=== PATIENT | male | born 1935 | race Caucasian/White ===

== ENCOUNTER 2020-11-23 06:07 | Day surgery (SDC) | payer MEDICARE, BC ==
[2020-11-19 11:05] VITALS: BMI 30.8
[~2020-11-23 06:07] MED LIST: ALPRAZolam 0.25 MG TAB PO PRN; ALPRAZolam 0.5 MG TAB PO PRN; ASPIRIN 325 MG TAB PO STA; ATORVASTATIN 80 MG TAB PO STA; NITROGLYCERIN SL TABS 0.4 MG TAB SUBLINGUAL PRN; SODIUM CHLORIDE 0.9% 1,000 ML in EMPTY BAG 1 BAG IV ONE
[2020-11-23 06:49] LABS: Basophils % (A) 0 %; Eosinophils # (A) 0.2 k/uL (0-0.7); Eosinophils % (A) 3 %; HCT 39.5 % (39.0-53.0); HGB 13.7 gm/dL (13.0-17.5); Lymphocytes # (A) 2.2 k/uL (1.0-4.8); Lymphocytes % (A) 26 %; MCH 30.4 pg (25.0-35.0); MCHC 34.8 g/dL (31.0-37.0); MCV 87.6 fL (80.0-100.0); Mean Platelet Volume 6.5; Monocytes # (A) 0.5 k/uL (0-1.0); Monocytes % (A) 6 %; Neutrophils # (A) 5.3 k/uL (1.3-7.7); Neutrophils % (A) 63 %; Platelet Count 195 k/uL (150-450); RBC 4.51 m/uL (4.30-5.90); RDW 13.8 % (11.5-15.5); WBC 8.5 k/uL (3.8-10.6)
[2020-11-23] MEDS ORDERED: fentaNYL (PF) 50 MCG/ML 2 ML AMP ONE (07:02)
[2020-11-23 07:06] LABS: Calcium 9.6 mg/dL (8.4-10.2); Potassium 4.1 mmol/L (3.5-5.1)
[2020-11-23 07:07] LABS: INR 1.3 (<1.2); Prothrombin Time 13.1 sec (9.0-12.0)
[2020-11-23] MEDS ORDERED: SODIUM CHLORIDE 0.9% 1,000 ML IV ONE (07:07)
[2020-11-23] MEDS ORDERED: LIDOCAINE 1% INJ 10MG/ML (20 ML MDV) ONE (07:08)
[2020-11-23] MEDS ORDERED: VERAPAMIL 2.5 MG/ML 2 ML AMP ONE (07:08)
[2020-11-23 07:12] VITALS: TEMP 97.3
[2020-11-23] MEDS: BENZOCAINE SPRAY 1 CAN MUCOUS MEM ONE ×2 (07:20→07:24)
[2020-11-23] MEDS: MIDAZOLAM 2 MG/2 ML VIAL IV ONE ×2 (07:24→07:27)
[2020-11-23] MEDS ORDERED: fentaNYL (PF) 50 MCG/ML 2 ML AMP IV ONE (07:24)
[2020-11-23] MEDS ORDERED: IV FLUID CONTINUATION 600 ML IV ONE (08:05)
[2020-11-23] MEDS ORDERED: LIDOCAINE 1% INJ 10MG/ML (20 ML MDV) SQ ONE (08:05)
[2020-11-23] MEDS ORDERED: VERAPAMIL SYRINGE (5 MG/10 ML) INTRAARTER ONE (08:08)
[2020-11-23] MEDS ORDERED: HEPARIN SODIUM 1,000 UN/ML (10ML VL) IV ONE (08:24)
[2020-11-23] MEDS ORDERED: HEPARIN SODIUM 1,000 UN/ML (10ML VL) ONE (08:24)
[2020-11-23] MEDS ORDERED: IOPAMIDOL-370 125ML BTL INJ ONE (08:33)
[2020-11-23 08:34] LABS: O2 Sat Blood Gas 74.2 %
[2020-11-23 08:36] LABS: O2 Sat Blood Gas 98.9 %
[2020-11-23] MEDS ORDERED: RX INFO: IV CONTRAST WAS GIVEN 1 EACH MISC MISCELLANE PRN (08:44)
[2020-11-23] MEDS ORDERED: SODIUM CHLORIDE 0.9% 1,000 ML IV SCH (08:45)
[2020-11-23] MEDS ORDERED: ALBUTEROL NEBULIZED 2.5 MG/3 ML INHALATION PRN (08:45)
--- NOTE | 2020-11-23 09:52 | CC ---
CARDIAC CATHETERIZATION REPORT Mr. Oshea is an 85-year-old male with a known history of aortic valve disease, history of cardiomyopathy who presented with symptoms of progressive fatigue and dyspnea and his echocardiogram revealed progression of his aortic valve gradient as well as worsening of his left ventricular systolic function. In view of that, recommendation was made regarding cardiac catheterization. The procedure as well as the risks and the complications were discussed with the patient who is in full understanding and agreement. PROCEDURE: Patient was brought to labor/excavator in a fasting semi-sedated state after receiving fentanyl and Benadryl and achieving moderate conscious state. Using Xylocaine anesthesia and Seldinger technique, a 6-Kyrgyz sheath was introduced in the right radial artery. Subsequently, the right basilic vein intravenous catheter was exchanged to a 6-Kyrgyz sheath and right heart catheterization was performed using [place]- Destiny catheter. Multiple pressure and samples were obtained. Cardiac output by thermodilution was calculated. Following that, selective right and left coronary angiography performed using 5-Kyrgyz and 4 bend right Alexander and 3.5 bend right Alexander catheter. Multiple views of the coronary artery including hemiaxial views were obtained. Following that, the Alexander catheter was used to cross the aortic valve and left ventricular end- diastolic pressure was calculated. Following that, catheter and sheath were removed. Hemostasis was obtained with deployment of a TR band and compression of the right basilic vein. There was no immediate complication. The patient was returned to his room in stable condition. Of note, the patient received 4500 units of intravenous heparin as well as intra-arterial verapamil. FINDINGS: HEMODYNAMICS: Cardiac output by Kiet of 6.3 L/minute and by thermodilution 5.4 L/minute. Femoral arterial saturation of 99%, pulmonary artery saturation 73%, right atrial saturation 74%. Pulmonary artery systolic pressure of 28 with a diastolic of 8 and a mean of 15 mmHg. Pulmonary capillary wedge pressure A-wave of 7, V-wave of 7 with a mean of 5 mmHg. Right ventricle systolic pressure of 28 with an end- diastolic of 3 mmHg. Right atrial A-wave of 4 with a V-wave of 4 with a mean of 2 mmHg. Left ventricular systolic pressure of 160 mmHg , ascending aorta 145 mmHg with a peak to peak gradient of 15 mmHg. FLUOROSCOPY: There was calcification involving the coronary arteries. LEFT MAIN: This is a short size vessel, bifurcating into left circumflex, left anterior descending artery. Left main coronary artery has a 10% to 20% plaque. LEFT ANTERIOR DESCENDING ARTERY: This is a large-size vessel reaching to the apex with a wraparound apex segment giving rise to a large diagonal branch. The left anterior descending artery has mild intimal disease proximally 10% to 20% without any high-grade stenosis. LEFT CIRCUMFLEX: This is a nondominant vessel, large in caliber, giving rise to 2 obtuse marginal branches. The second one is larger in caliber. The left circumflex proximally has a 20% to 30% plaque. The rest of the vessel has no high-grade stenosis. RIGHT CORONARY ARTERY: This is a dominant vessel bifurcating distally PDA and posterolateral segment and branches. The right coronary artery as well as branches have no evidence of obstructive coronary artery disease. CONCLUSION: 1. Calcified coronary arteries. 2. Mild obstructive disease in the LAD and left circumflex. 3. Moderate aortic stenosis with a valve area 1.4 centimeters square. RECOMMENDATION: In view of finding anatomy, I recommend to continue medical therapy with aggressive coronary risk modifications being initiated. Those findings and recommendation were discussed with the patient and his family and they are in full understanding and agreement. Duration of sedation is 39 minutes. MMODL / IJN: [id number] / MTDKrishna
[2020-11-23 09:57] VITALS: RESP 16
--- NOTE | 2020-11-23 11:02 | ECHOT ---
TRANSESOPHAGEAL ECHOCARDIOGRAM INDICATION: Evaluation of aortic valve. After explaining the procedure to the patient as well as risks and complications, blood pressure, heart rate, O2 saturation were monitored. The throat was sprayed with Cetacaine. He received 2 mg intravenous Versed, 50 mcg intravenous fentanyl. The probe was introduced into the esophagus without difficulty. Images were obtained. Following that, the probe was removed. There was no immediate complication. FINDINGS: Left atrial size is dilated. Left atrial appendage is normal. Left ventricular systolic function is moderately impaired. The estimated ejection fraction of 35% to 40% with global hypokinesis. The aortic valve is a tricuspid valve calcified with reduced opening. By planimetry, the valve area is 1.2 centimeter square. Mitral valve appears to be normal. The tricuspid valve appears to be normal. Descending thoracic aorta revealed mild atherosclerotic changes. No pericardial effusion was noted. Contrast bubble study revealed no evidence of shunting across the interatrial septum. Doppler, pulse wave and color Doppler obtained and revealed moderate mitral and tricuspid regurgitation. The estimated right ventricular systolic pressure is 51 mmHg consistent with moderate pulmonary hypertension. There was mild to moderate aortic regurgitation with trace pulmonic regurgitation. The peak gradient across the aortic valve was 52 mmHg with a mean of 36 mmHg. There was no shunting by color Doppler study. CONCLUSION: 1. Dilated left atrium. 2. Moderate global hypokinesis. 3. Moderate aortic stenosis with a valve area of 1.2 centimeter square and mean gradient of 36 mmHg with mild to moderate aortic regurgitation. 4. Moderate tricuspid and aortic regurgitation with moderate pulmonary hypertension. 5. Trace pulmonic regurgitation. 6. No pericardial effusion. 7. Mild atherosclerotic changes of the descending thoracic aorta. 8. A wire was noted in the right ventricle. MMODL / IJN: [id number] /
[2020-11-23 14:18] VITALS: PULSE 60
[2020-11-23 14:21] VITALS: BP 118/71
[2020-11-23] MEDS ORDERED: lisinopriL 20 MG TAB PO SCH (21:00)
[2020-11-23] MEDS ORDERED: ATORVASTATIN 20 MG TAB PO SCH (21:00)
[2020-11-24] MEDS ORDERED: PANTOPRAZOLE 40 MG TABLET PO SCH (07:30)
[2020-11-24] MEDS ORDERED: SPIRONOLACTONE 25 MG TAB PO SCH (09:00)
[2020-11-24] MEDS ORDERED: METOPROLOL SUCCINATE (ER) 50 MG TAB.ER.24H PO SCH (09:00)
== END 2020-11-23 13:58 | disposition home or self-care (01) ==
LOC: CATHCVL 06:07
PROVIDERS: ATTEND Internal Medicine Interventional Cardiology
DX: I25.10 Atherosclerotic heart disease of native coronary artery without angina pectoris (principal); I25.84 Coronary atherosclerosis due to calcified coronary lesion; I08.2 Rheumatic disorders of both aortic and tricuspid valves; I27.20 Pulmonary hypertension, unspecified; I70.0 Atherosclerosis of aorta; I42.8 Other cardiomyopathies; E78.00 Pure hypercholesterolemia, unspecified; I48.91 Unspecified atrial fibrillation; I10 Essential (primary) hypertension; Z95.810 Presence of automatic (implantable) cardiac defibrillator; E78.2 Mixed hyperlipidemia; Z96.652 Presence of left artificial knee joint; Z98.890 Other specified postprocedural states; I48.92 Unspecified atrial flutter; Z87.891 Personal history of nicotine dependence; Z79.01 Long term (current) use of anticoagulants; Z79.899 Other long term (current) drug therapy; Z88.2 Allergy status to sulfonamides
CPT/HCPCS: 93312; 93320; 93325; 93460; 80048; 85018; 82810; 85025; 85610; C1769 ×2; C1751; C1894; J2250; J2001; J3010; J1644; Q9967

== ENCOUNTER → 2021-10-28 | Outpatient (CLI) | payer MEDICARE, BC ==
[2021-10-28 18:49] LABS: HCT 42.2 % (39.6-50.0); HGB 13.6 g/dL (13.0-17.0); MCH 28.8 pg (27.0-32.0); MCHC 32.2 g/dL (32.0-37.0); MCV 89.2 fL (80.0-97.0); Mean Platelet Volume 9.5 fL (9.5-12.2); NRBC Per 100 WBC 0 /100 WBCS (0.0-0.0); Platelet Count 188 X 10*3/uL (140-440); RBC 4.73 X 10*6/uL (4.40-5.60); RDW 13.7 % (11.5-14.5); WBC 7.18 X 10*3/uL (4.50-10.00)
[2021-10-28 18:52] LABS: African American GFR (CKD) 70.6 (60.0-200.0); Anion Gap 13.5 mmol/L (10.00-18.00); Blood Urea Nitrogen 17.8 mg/dL (9.0-27.0); Carbon Dioxide 22.5 mmol/L (20.0-27.5); Non-African American GFR(CKD) 60.9 (60.0-200.0); Potassium 4.5 mmol/L (3.5-5.5)
== END | disposition home or self-care (01) ==
LOC: LABPAT 11:28
PROVIDERS: ATTEND Internal Medicine Clinical Cardiac Electrophysiology
DX: Z01.812 Encounter for preprocedural laboratory examination (principal); T82.111A Breakdown (mechanical) of cardiac pulse generator (battery), initial encounter; Y71.2 Prosthetic and other implants, materials and accessory cardiovascular devices associated with adverse incidents
CPT/HCPCS: 36415; 80051; 82565; 84520; 85027

== ENCOUNTER 2021-10-31 10:25 | Day surgery (SDC) | payer MEDICARE, BC ==
[2021-10-28 14:02] VITALS: BMI 30.9
[~2021-10-31 10:25] MED LIST changes: -ALPRAZolam 0.25 MG TAB PO PRN; -ALPRAZolam 0.5 MG TAB PO PRN; -ASPIRIN 325 MG TAB PO STA; -ATORVASTATIN 80 MG TAB PO STA; -NITROGLYCERIN SL TABS 0.4 MG TAB SUBLINGUAL PRN; +SODIUM CHLORIDE 0.9% 1,000 ML IV SCH; -SODIUM CHLORIDE 0.9% 1,000 ML in EMPTY BAG 1 BAG IV ONE
[2021-10-31] MEDS ORDERED: SODIUM CHLORIDE 0.9% 1,000 ML IV ONE (10:33)
[2021-10-31 11:08] VITALS: RESP 18; TEMP 97.6
[2021-10-31 11:19] LABS: Basophils % (A) 1 %; Eosinophils # (A) 0.2 k/uL (0-0.7); Eosinophils % (A) 2 %; HCT 42.7 % (39.0-53.0); HGB 14.4 gm/dL (13.0-17.5); Lymphocytes # (A) 2.4 k/uL (1.0-4.8); Lymphocytes % (A) 27 %; MCH 30.3 pg (25.0-35.0); MCHC 33.7 g/dL (31.0-37.0); MCV 89.8 fL (80.0-100.0); Mean Platelet Volume 6.7; Monocytes # (A) 0.4 k/uL (0-1.0); Monocytes % (A) 4 %; Neutrophils # (A) 5.5 k/uL (1.3-7.7); Neutrophils % (A) 64 %; Platelet Count 207 k/uL (150-450); RBC 4.75 m/uL (4.30-5.90); RDW 14.1 % (11.5-15.5); WBC 8.7 k/uL (3.8-10.6)
[2021-10-31 11:20] LABS: INR 1.9 (<1.2); Prothrombin Time 19.5 sec (9.0-12.0)
[2021-10-31 11:21] LABS: Calcium 9.3 mg/dL (8.4-10.2); Potassium 4.2 mmol/L (3.5-5.1)
[2021-10-31] MEDS ORDERED: ceFAZolin 1 GM in SODIUM CHLORIDE 0.9% IRRIG BTL 250 ML IRRIGATION PRN (12:00)
[2021-10-31] MEDS ORDERED: diphenhydrAMINE 50 MG/ML 1 ML VIAL ONE (12:08)
[2021-10-31] MEDS ORDERED: PROPOFOL 10 MG/ML 20 ML VIAL IV ONE (12:08)
[2021-10-31] MEDS ORDERED: fentaNYL (PF) 50 MCG/ML 2 ML AMP ONE (12:08)
[2021-10-31] MEDS ORDERED: MIDAZOLAM 2 MG/2 ML VIAL ONE (12:08)
[2021-10-31] MEDS ORDERED: LIDOCAINE 1% INJ 10MG/ML (20 ML MDV) ONE (12:35)
[2021-10-31] MEDS ORDERED: LIDOCAINE 1% INJ 10MG/ML (20 ML MDV) SQ ONE (12:50)
[2021-10-31] MEDS ORDERED: ACETAMINOPHEN TAB 325 MG TAB PO PRN (13:28)
[2021-10-31] MEDS ORDERED: ACETAMINOPHEN IV (For NPO) 1,000 MG in EMPTY BAG 1 BAG IVPB ONE (13:28)
--- NOTE | 2021-10-31 13:40 | P.EPPROC ---
- EP Procedure Note Electrophysiology Procedure Note: Diagnosis Premature battery depletion, [employer] medical single chamber ICD in situ Nonischemic current myopathy class II CHF On guideline directed for medical treatment Procedure Patient was brought to the EP lab in a fasting state. Conscious sedation provided by anesthesia. IV antibiotics were administered In the incision was made over the generator and carried down to the level of the generator The old generator which is on advisory was explanted The new generator was implanted The single coil single-chamber ICD lead was interrogated Threshold 1 warted 0.5 ms, R waves 11 mV and pacing impedance 430 ohms High-voltage impedance 72 ohms The new generator was implanted, [employer] medical single chamber and then tested Defibrillation level testing was performed DC. A shock was used to induce ventricular fibrillation This is adequately and appropriately detected at least sensitivity and successfully internally defibrillated with 10 J shock Total polarity line charge time 1.8 seconds shocking impedance 72 ohms line no pushup noise The device was then programmed to VVI 40 beats a minute MADIT RIT programming for tachycardia therapies Patient of the procedure well without any acute complications
[2021-10-31 16:38] VITALS: BP 97/52; PULSE 57
== END 2021-10-31 17:23 | disposition home or self-care (01) ==
LOC: CATHEP 10:25
PROVIDERS: ATTEND Internal Medicine Clinical Cardiac Electrophysiology
DX: Z45.02 Encounter for adjustment and management of automatic implantable cardiac defibrillator (principal); I42.8 Other cardiomyopathies; I48.0 Paroxysmal atrial fibrillation; Z20.822 Contact with and (suspected) exposure to COVID-19; E78.2 Mixed hyperlipidemia; I35.0 Nonrheumatic aortic (valve) stenosis; J45.909 Unspecified asthma, uncomplicated; K21.9 Gastro-esophageal reflux disease without esophagitis; Z97.2 Presence of dental prosthetic device (complete) (partial); I10 Essential (primary) hypertension; I25.10 Atherosclerotic heart disease of native coronary artery without angina pectoris; Z98.890 Other specified postprocedural states; Z87.891 Personal history of nicotine dependence; Z96.652 Presence of left artificial knee joint; Z79.01 Long term (current) use of anticoagulants; Z79.899 Other long term (current) drug therapy; Z88.2 Allergy status to sulfonamides
CPT/HCPCS: 33262; 80048; 85025; 85610; 87635; C1722; J2250; J1200; J0690; J2001; J3010; J0131; J2704

== ENCOUNTER 2023-06-14 06:37 | Outpatient (CLI) | payer MEDICARE ==
[2023-06-14 07:21] LABS: Glucose,Whole Blood 113 mg/dL (70-110)
[2023-06-14 09:02] LABS: INR 2.4 (<1.2); Partial Thromboplastin Time 35.8 sec (22.0-30.0); Prothrombin Time 23.6 sec (9.0-12.0)
[2023-06-14 09:06] LABS: NT-Pro-B-Type Natriuretic Pept 4480 pg/mL
[2023-06-14 09:16] LABS: ALT 23 U/L (4-49); AST 26 U/L (17-59); African American GFR (CKD) 56 (>60 ml/min/1.73 sqM); Albumin 4.5 g/dL (3.5-5.0); Albumin/Globulin Ratio 1.9; Alkaline Phosphatase 61 U/L (38-126); Anion Gap 11 mmol/L; Blood Urea Nitrogen 25 mg/dL (9-20); Calcium 9.6 mg/dL (8.4-10.2); Carbon Dioxide 21 mmol/L (22-30); Chloride 106 mmol/L (98-107); Globulin 2.4 g/dL; Glucose 122 mg/dL (74-99); Magnesium 1.5 mg/dL (1.6-2.3); Non-African American GFR(CKD) 49 (>60 ml/min/1.73 sqM); Potassium 4.4 mmol/L (3.5-5.1); Sodium 138 mmol/L (137-145); Total Bilirubin 0.6 mg/dL (0.2-1.3); Total Protein 6.9 g/dL (6.3-8.2)
[2023-06-14 11:19] LABS: Basophils # (A) 0.04 X 10*3/uL (0.00-0.10); Basophils % (A) 0.5 %; Eosinophils # (A) 0.14 X 10*3/uL (0.04-0.35); Eosinophils % (A) 1.7 %; HCT 41.1 % (39.6-50.0); HGB 13.7 d/dL (13.0-17.0); Lymphocytes # (A) 1.68 X 10*3/uL (0.90-5.00); Lymphocytes % (A) 20.1 %; MCHC 33.3 d/dL (32.0-37.0); MCV 86.9 FL (80.0-97.0); Mean Platelet Volume 9.7 FL (9.5-12.2); NRBC Per 100 WBC 0 X 10*3/uL (0.00-0.01); Neutrophils # (A) 5.98 X 10*3/uL (1.80-7.70); Neutrophils % (A) 71.5 %; Platelet Count 209 X 10*3/uL (140-440); RBC 4.73 X 10*6/uL (4.40-5.60); RDW 14.6 % (11.5-14.5); WBC 8.36 X 10*3/uL (4.50-10.00)
[2023-06-14 11:53] LABS: African American GFR (CKD) >90 (>60 ml/min/1.73 sqM); Blood Urea Nitrogen 19 mg/dL (9-20); Non-African American GFR(CKD) 82 (>60 ml/min/1.73 sqM)
--- NOTE | 2023-06-14 12:42 | US ---
EXAMINATION TYPE: US carotid duplex BILAT DATE OF EXAM: 06/14/2023 COMPARISON: NONE CLINICAL INDICATION: Male, 88 years old with history of R55 SYNCOPE; TECHNIQUE: Carotid duplex ultrasound examination. Indirect Doppler criteria was utilized. FINDINGS: EXAM MEASUREMENTS: RIGHT: Peak Systolic Velocity (PSV) cm/sec ----- Right CCA: 65.1 ----- Right ICA: 97.4 ----- Right ECA: 56.7 ICA/CCA ratio: 1.5 RIGHT: End Diastole cm/sec ----- Right CCA: 20.6 ----- Right ICA: 29.2 ----- Right ECA: 0.0 LEFT: Peak Systolic Velocity (PSV) cm/sec ----- Left CCA: 63.3 ----- Left ICA: 115.7 ----- Left ECA: 51.1 ICA/CCA ratio: 1.8 LEFT: End Diastole cm/sec ----- Left CCA: 24.1 ----- Left ICA: 38.1 ----- Left ECA: 0.0 VERTEBRALS (direction of flow): Right Vertebral: Antegrade Left Vertebral: Antegrade Rhythm: Normal HEALTHCARE RECEPTIONIST NOTES: significant bilateral BULB and ICA plaque, no elevated velocities IMPRESSION: Bilateral atherosclerotic plaque but no significant hemodynamic stenosis by carotid Doppler ultrasoun d. Criteria for Assigning % of Stenosis / Diameter reduction (Estimation based on the indirect measurements of the internal carotid artery velocities (ICA PSV). 1. Normal (no stenosis)=ICA PSV < 125 cm/s: ratio < 2.0: ICA EDV<40 cm/s. 2. Less than 50% stenosis=ICA PSV < 125 cm/s: ratio < 2.0: ICA EDV<40 cm/s. 3. 50 to 69% stenosis=ICA PSV of 125 to 230 cm/s: ration 2.0 ? 4.0: ICA EDV 40-100 cm/s. 4. Greater than 70% stenosis to near occlusion= ICA PSV > 230 cm/s: ratio > 4.0: ICA EDV > 100 cm/s. 5. Near occlusion= ICA PSV velocities may be low or undetectable: variable ratio and ICA EDV. 6. Total occlusion=unable to detect flow.
--- NOTE | 2023-06-14 13:52 | CT ---
EXAMINATION TYPE: CT TAVR Planning DATE OF EXAM: 06/14/2023 HISTORY: TAVER planning CT DLP: 1630.2 mGycm Automated Exposure Control for Dose Reduction was Utilized. CONTRAST: CT scan of the chest, abdomen and pelvis is performed with IV Contrast, patient injected with 125 mL of Isovue 370. COMPARISON: None TECHNIQUE: Helical imaging obtained through the chest, abdomen and pelvis during arterial phase tasha muna administration of radiographic contrast intravenously. FINDINGS: See report from [employer] regarding preprocedural planning CHEST: Lower Neck and Thyroid: No significant findings Lungs: No significant findings Central Airway: No significant findings Pleura: No significant findings Pulmonary Arteries: No significant findings Heart and Pericardium: The heart is mildly enlarged. Pacer device is in place. Lymph Nodes: No significant findings Mediastinum & Esophagus: No significant findings ABDOMEN/PELVIS: Please note arterial phase of the imaging limits detailed evaluation of the solid abdominal organs. Liver: No significant findings Spleen: No significant findings Kidneys: 6.2 cm simple cyst lower pole right kidney. Additional tiny cysts seen bilaterally. Adrenal Glands: No significant findings Pancreas: No significant findings Gallbladder: No significant findings Bowel and Mesentery: No significant findings Lymph Nodes: No significant findings Urinary Bladder: No significant findings Pelvic Organs: No significant findings Other: Postoperative changes of lumbar fusion. Other Lines/Tubes/Devices/Hardware: None IMPRESSION: 1. No significant abnormality appreciated.
[2023-06-14 15:34] LABS: Appearance,Urine Clear (Clear); Bilirubin,Urine Negative (Negative); Blood,Urine Negative (Negative); Color,Urine Colorless; Glucose,Urine (UA) 4+ (Negative); Ketones,Urine Negative (Negative); Leukocyte Esterase,Urine Negative (Negative); Nitrite,Urine Negative (Negative); Protein,Urine Negative (Negative); Urobilinogen,Urine <2.0 mg/dL (<2.0)
[2023-06-14 15:37] LABS: Specific Gravity,Urine >1.050 (1.001-1.035)
[2023-06-14 16:53] LABS: Hepatitis A Antibody IgM Nonreactive; Hepatitis B Core IgM Nonreactive; Hepatitis B Surface Antigen Nonreactive; Hepatitis C IgG Antibody Nonreactive
[2023-06-14 17:14] LABS: Chol/HDL Ratio 3.76 Ratio; LDL Cholesterol,Calculated 76.2 mg/dL (0.0-131.0)
== END 2023-06-14 15:17 | disposition home or self-care (01) ==
LOC: LABWHC1 06:37
PROVIDERS: ATTEND Thoracic Surgery (Cardiothoracic Vascular Surgery)
DX: Z01.818 Encounter for other preprocedural examination (principal); I35.1 Nonrheumatic aortic (valve) insufficiency; I25.10 Atherosclerotic heart disease of native coronary artery without angina pectoris; E87.8 Other disorders of electrolyte and fluid balance, not elsewhere classified; E07.9 Disorder of thyroid, unspecified; I35.0 Nonrheumatic aortic (valve) stenosis; E11.9 Type 2 diabetes mellitus without complications; N28.9 Disorder of kidney and ureter, unspecified; R58 Hemorrhage, not elsewhere classified; Z79.01 Long term (current) use of anticoagulants; Z79.899 Other long term (current) drug therapy
CPT/HCPCS: 83880; 80061; 80053; 80074; 84443; 82565; 83735; 84520; 85025; 85610; 85730; 81003; 87086; 83036; 93880; 71275; 36415 ×2; 74174; Q9967

== ENCOUNTER → 2023-06-21 | Outpatient (CLI) | payer MEDICARE | END | disposition home or self-care (01) | LOC: LABPAT 09:52 | PROVIDERS: ATTEND Thoracic Surgery (Cardiothoracic Vascular Surgery) | DX: Z01.812 Encounter for preprocedural laboratory examination (principal) | CPT/HCPCS: 36415; 86850; 86900; 86901 ==

== ENCOUNTER 2023-06-27 05:34 | Inpatient (IN) | payer MEDICARE ==
[~2023-06-27 05:34] MED LIST changes: +CLOPIDOGREL 75 MG TAB PO ONE; +DEXAMETHASONE SOD PHOSPHATE 4 MG/ML 1 ML VIAL IV ONE; +LIDOCAINE 1% (10MG/ML) FOR IV START INTRADERMA PRN; +ONDANSETRON 4 MG/2 ML VIAL IVP ONE; -SODIUM CHLORIDE 0.9% 1,000 ML IV SCH
[2023-06-27] MEDS ORDERED: PROTAMINE SULFATE 250 MG in EMPTY BAG 1 BAG IV PRN (06:00)
[2023-06-27] MEDS ORDERED: NITROGLYCERIN-D5W PMX 25 MG/250 ML BTL IV PRN (06:00)
[2023-06-27] MEDS ORDERED: ASPIRIN 325 MG TAB PO ONE (06:00)
[2023-06-27] MEDS ORDERED: LACTATED RINGERS 1,000 ML IV SCH ×2 (06:00→10:01)
[2023-06-27] MEDS ORDERED: ELECTROLYTE-A SOLUTION 1,000 ML with POTASSIUM CHLORIDE 100 MEQ, MAGNESIUM SULFATE 16 M... IV PRN ×5 (06:00)
[2023-06-27] MEDS ORDERED: METOPROLOL TARTRATE 25 MG TAB PO ONE ×2 (06:00)
[2023-06-27] MEDS ORDERED: ATORVASTATIN 10 MG TAB PO ONE (06:00)
[2023-06-27] MEDS ORDERED: INSULIN REGULAR 100 UNIT in SODIUM CHLORIDE 0.9% 100 ML IV PRN (06:00)
[2023-06-27] MEDS ORDERED: SODIUM CHLORIDE 0.9% 500 ML 500 ML INTRAARTER PRN (06:00)
[2023-06-27] MEDS ORDERED: TRANEXAMIC ACID 2,000 MG in SODIUM CHLORIDE 0.9% 80 ML IV PRN (06:00)
[2023-06-27] MEDS ORDERED: CLEVIDIPINE BUTYRATE 25 MG in EMPTY BAG 1 BAG IV PRN (06:00)
[2023-06-27] MEDS ORDERED: SODIUM CHLORIDE 0.9% 1,000 ML IV ONE (06:09)
[2023-06-27] MEDS ORDERED: CLOPIDOGREL 75 MG TAB ONE (06:21)
[2023-06-27 06:42] LABS: Glucose,Whole Blood 114 mg/dL (70-110)
[2023-06-27 06:50] LABS: Basophils % (A) 0 %; Eosinophils # (A) 0.2 k/uL (0-0.7); Eosinophils % (A) 2 %; HCT 42.2 % (39.0-53.0); HGB 14.1 gm/dL (13.0-17.5); Lymphocytes # (A) 2.6 k/uL (1.0-4.8); Lymphocytes % (A) 26 %; MCH 29.6 pg (25.0-35.0); MCHC 33.5 g/dL (31.0-37.0); MCV 88.4 fL (80.0-100.0); Mean Platelet Volume 7.1; Monocytes # (A) 0.5 k/uL (0-1.0); Monocytes % (A) 5 %; Neutrophils # (A) 6.6 k/uL (1.3-7.7); Neutrophils % (A) 66 %; Platelet Count 220 k/uL (150-450); RBC 4.77 m/uL (4.30-5.90); RDW 14.3 % (11.5-15.5)
[2023-06-27 06:55] LABS: African American GFR (CKD) 50 (>60 ml/min/1.73 sqM); Anion Gap 11 mmol/L; Blood Urea Nitrogen 31 mg/dL (9-20); Carbon Dioxide 23 mmol/L (22-30); Chloride 103 mmol/L (98-107); Glucose 123 mg/dL (74-99); Non-African American GFR(CKD) 43 (>60 ml/min/1.73 sqM); Potassium 4.9 mmol/L (3.5-5.1); Sodium 137 mmol/L (137-145)
[2023-06-27] MEDS ORDERED: HYDROmorphone 0.5 MG/0.5 ML SYRINGE IVP PRN (07:00)
[2023-06-27] MEDS ORDERED: MIDAZOLAM 2 MG/2 ML VIAL IV PRN (07:00)
[2023-06-27 07:03] LABS: INR 1.3 (<1.2); Prothrombin Time 13.5 sec (10.0-12.5)
[2023-06-27] MEDS ORDERED: NEOSTIGMINE 1 MG/ML 10 ML VIAL ONE (07:43)
[2023-06-27] MEDS ORDERED: PROTAMINE SULFATE 10 MG/ML 5 ML VIAL ONE (07:43)
[2023-06-27] MEDS ORDERED: ONDANSETRON 4 MG/2 ML VIAL ONE (07:43)
[2023-06-27] MEDS ORDERED: ROCURONIUM 10 MG/ML (5 ML VIAL) IV ONE (07:43)
[2023-06-27] MEDS ORDERED: PROPOFOL 10 MG/ML 20 ML VIAL IV ONE (07:43)
[2023-06-27] MEDS ORDERED: GLYCOPYRROLATE 0.2 MG/ML 2 ML VIAL ONE (07:43)
[2023-06-27] MEDS ORDERED: HEPARIN SODIUM,PORCINE 5,000 UNIT/ML 1 ML VIAL ONE (07:43)
[2023-06-27] MEDS ORDERED: fentaNYL (PF) 50 MCG/ML 2 ML AMP ONE (07:43)
[2023-06-27] MEDS ORDERED: SUCCINYLCHOLINE CHLORIDE 200 MG/10 ML VIAL IV ONE (07:43)
[2023-06-27] MEDS ORDERED: DEXAMETHASONE SOD PHOSPHATE 4 MG/ML 1 ML VIAL ONE (07:43)
[2023-06-27] MEDS ORDERED: PHENYLEPHRINE-0.9% NACL SYG 1,000 MCG/10 ML SYRINGE ONE (07:43)
[2023-06-27] MEDS ORDERED: LIDOCAINE 1% INJ 10MG/ML (20 ML MDV) ONE (07:43)
[2023-06-27] MEDS ORDERED: IOPAMIDOL-370 100ML BTL INTRATHECA ONE (08:52)
[2023-06-27] MEDS ORDERED: IOPAMIDOL-370 100ML BTL INJ ONE (08:52)
--- NOTE | 2023-06-27 09:12 | P.ANPRN ---
Procedure Note - Anesthesia - Invasive Line Left Arterial Line Time Out Performed: Yes ([id number]) Date of Procedure: 06/27/23 Time of Procedure: 06:58 Location of Patient: PreOp Preparation: Sterile Prep, Sterile Dressing Arterial Line Location: Radial (left) Ultrasound Used: No Purpose - Visualization and Identification of Vasculature: No Needle Guage: 20g Image Stored and Saved: No Narrative: Central line placement per sterile protocol utilized.
--- NOTE | 2023-06-27 09:16 | P.ANPRN ---
Procedure Note - Anesthesia - MACHO Intraop Pre Bypass MACHO Intraop - Anesthesia Indication: TAVR, Aortic Stenosis Date of Procedure: 06/27/23 Pre-operative Diagnosis: Aortic Stenosis Post-operative Diagnosis: Aortic Stenosis, AI, MR, TR Surgeon: Catarino De Leon Left Ventricle: dilated Ejection Fraction: Other (25-30) Regional Wall Motion Abnormalities: None Left Ventricle Hypertrophy: No Right Ventricle: wnl R. Ventricle Function: Normal Aortic Valve: severely calcified. 0.4cm2, peak 83mmHg, mean 52mmHg Anatomy: Trileaflet Aortic Stenosis: Severe (0.4cm2) Aortic Regurgitation: Moderate Mitral Stenosis: None Mitral Regurgitation: Moderate Tricuspid Stenosis: None Tricuspid Regurgitation: Mild Pulmonic Stenosis: None Pulmonic Regurgitation: None R. Atrial Dilation: No R. Atrial PFO: No L. Atrial Dilation: No Aortic Dissection: No Aortic Calcification: None Plural Effusion: None
--- NOTE | 2023-06-27 09:18 | P.ANPRN ---
Procedure Note - Anesthesia - MACHO Intraop Post Bypass MACHO Intraop Post Bypass Procedure Performed: TAVR Left Ventricle: unchanged Ejection Fraction: Other (25-30) Regional Wall Motion Abnormalities: None Right Ventricle: wnl R. Ventricle Function: Normal Aortic Valve: Prosthetic valve in place. No notable perivalvular leak. residual gradient 4mmgh Mitral Valve: Unchanged Tricuspid: Unchanged Pulmonic: Unchanged Aortic Dissection: No
--- NOTE | 2023-06-27 09:53 | P.OP ---
Date of Procedure: 06/27/23 Preoperative Diagnosis: Tricuspid calcific aortic stenosis Postoperative Diagnosis: Same Procedure(s) Performed: Percutaneous transfemoral transcatheter aortic valve replacement with 34 mm Medtronic Evolute FX valve prosthesis Implants: 34 mm Medtronic evolute FX transcatheter aortic valve Anesthesia: GETA Surgeon: Catarino De Leon (Cardiovascular surgeon) Engine Research Engineer #1: Louis Salgado (First respiratory assistant) Engine Research Engineer #2: Bridger Penn (Second respiratory assistant) Estimated Blood Loss (ml): 25 IV fluids (ml): 500 Pathology: none sent Condition: stable Disposition: PACU Indications for Procedure: 88-year-old male with symptomatic calcific aortic stenosis. He also has moderate aortic insufficiency. He was evaluated in the high risk valve clinic and felt to be appropriate for transcatheter aortic valve implantation. Elective surgery was scheduled. Operative Findings: Mean gradient across the aortic valve was 47 mmHg. Valve was implanted with depths of 2 on the right and 4 on the left. Excellent expansion of the frame was noted and there was no evidence of paravalvular leak. Groins sealed up well. Description of Procedure: Patient was brought to the cardiac catheterization laboratory and placed supine on the table. Gen. anesthesia was induced. The anterior torso and bilateral groins were sterilely prepped and draped. Left arterial and venous femoral access were obtained under ultrasound guidance. The femoral vein along 6-Yemeni sheath was placed and through this transvenous pacer was advanced into the right ventricle and tested. 6-Yemeni sheath was also placed in the left femoral artery. This was a long sheath that was advanced up into the descending thoracic aorta. Through this a pigtail catheter was advanced into the non- coronary sinus of Valsalva. Right femoral arterial access was then obtained. A 7-Yemeni sheath was placed. 2 Perclose devices were then placed and it was upsized to an 8-Yemeni sheath. Patient was systemically heparinized. 8-Yemeni sheath on the right was exchanged over a stiff wire for a 16-Yemeni sheath. The valve was crossed from the right with a straight wire and pigtail catheter positioned in the apex of the ventricle. Transvalvular gradients were measured. Small safari wire was then placed at the apex of the ventricle. 34 mm Me dtronic have her valve had been loaded on the back field and was brought up onto the table. It was checked under fluoroscopy. 16-Yemeni sheath was exchanged for the valve delivery system and this was advanced through the iliofemoral system into the descending aorta around the aortic arch and across the aortic valve. The device was deployed under rapid ventricular pacing. A magnet had been placed on the patient's ICD to obviate activation of the ICD during rapid ventricular pacing. Bowel was successfully deployed at levels 2 on the right and 4 on the left. Excellent valve expansion was noted. MACHO demonstrated excellent valve expansion with no interference with the mitral mechanism and no evidence of paravalvular leak. Good diastolic separation was noted on the arterial line. Heparin was reversed with protamine. The valve deployment system was removed and exchanged back for the 16-Yemeni sheath and then the 16- Yemeni sheath was removed and the Perclose device was successfully deployed with excellent hemostasis on the right. A third Perclose device was used for hemostasis on the left. Sterile dressings were applied the patient was extubated and transferred to recovery in stable condition.
[2023-06-27] MEDS ORDERED: ONDANSETRON 4 MG/2 ML VIAL IVP PRN (10:01)
[2023-06-27] MEDS ORDERED: ACETAMINOPHEN TAB 325 MG TAB PO PRN (10:01)
[2023-06-27] MEDS ORDERED: IPRATROPIUM-ALBUTEROL 3 ML NEB INHALATION PRN (10:01)
[2023-06-27 10:25] LABS: Glucose,Whole Blood 125 mg/dL (70-110)
--- NOTE | 2023-06-27 10:39 | XR ---
EXAMINATION TYPE: XR chest 1V portable DATE OF EXAM: 06/27/2023 HISTORY: post tavr COMPARISON: 11/24/2015 TECHNIQUE: Single view of the chest is submitted. FINDINGS: Demonstrated are scattered senescent parenchymal change. There is no evidence for focal infiltrate. The heart is stable. Aortic valve replacement procedure noted. Single lead pacer device in place. Hilar and mediastinal structures are within normal limits. Degenerative changes are seen of the dorsal spine. IMPRESSION: 1. Chronic changes without evidence for acute pulmonary disease.
[2023-06-27 10:41] LABS: Basophils % (A) 0 %; Eosinophils # (A) 0.1 k/uL (0-0.7); Eosinophils % (A) 1 %; HCT 35.9 % (39.0-53.0); HGB 12.6 gm/dL (13.0-17.5); Lymphocytes % (A) 10 %; MCH 30.6 pg (25.0-35.0); MCV 87.5 fL (80.0-100.0); Mean Platelet Volume 6.9; Monocytes # (A) 0.2 k/uL (0-1.0); Monocytes % (A) 2 %; Neutrophils # (A) 9.2 k/uL (1.3-7.7); Neutrophils % (A) 87 %; Platelet Count 159 k/uL (150-450); RDW 14.3 % (11.5-15.5); WBC 10.5 k/uL (3.8-10.6)
[2023-06-27 11:16] LABS: African American GFR (CKD) 61 (>60 ml/min/1.73 sqM); Anion Gap 8 mmol/L; Blood Urea Nitrogen 28 mg/dL (9-20); Calcium 8.7 mg/dL (8.4-10.2); Carbon Dioxide 18 mmol/L (22-30); Chloride 109 mmol/L (98-107); Glucose 130 mg/dL (74-99); Non-African American GFR(CKD) 53 (>60 ml/min/1.73 sqM); Potassium 4.8 mmol/L (3.5-5.1); Sodium 135 mmol/L (137-145)
[2023-06-27 12:19] LABS: Glucose,Whole Blood 123 mg/dL (70-110)
[2023-06-27] MEDS: DAPAGLIFLOZIN PROPANEDIOL 5 MG TABLET PO SCH (12:57)
[2023-06-27] MEDS ORDERED: DEXTROSE 50% SYRINGE 50 ML IVP PRN ×2 (12:59)
[2023-06-27] MEDS: lisinopriL 10 MG TAB PO SCH (13:02)
[2023-06-27] MEDS: LACTATED RINGERS 1,000 ML IV SCH ×2 (13:55→13:57)
[2023-06-27 14:32] VITALS: BMI 28.3
--- NOTE | 2023-06-27 16:06 | P.OP ---
Description of Procedure: Transcatheter Aoritc Valve Replacement Operative report PROCEDURE PERFORMED: 1. Percutaneous Aortic Valve Implantation using a 34 mm Evolut-FX. 2. Transesophageal echocardiography (performed by anesthesia) 3. Ultrasound guided access and repair of right femoral artery access site by Perclose closure device. 4. Placement of temporary pacemaker wire. 5. Aortic root angiography INDICATIONS: 1. 88 year-old with a history of severe symptomatic aortic valve stenosis. PERFORMING PHYSICIANS: 1. Louis Salgado DO Interventional Cardiology 2. Bridger Penn MD Interventional Cardiology. 3. Catarino De Leon MD, Cardiothoracic Surgeon. SEDATION: General anesthesia provided by anesthesia, see separate note APPROACH: Right femoral artery via percutaneous approach PROCEDURE DESCRIPTION: The patient was discussed at valve clinic with multidisciplinary approach with cardiothoracic surgeon as well as survey workers supervisor and thought better treated with TAVR. Risks, benefits, and alternatives of the procedure had been explained to the patient who understood the risks and agreed to proceed. After consents were obtained, patient was brought to the transcatheter aortic valve implantation room in the cardiac cath lab radiological technologist and general anesthesia was provided by the anesthesiologist (see separate report). Once full body sterile prep was performed, left femoral venous access was obtained and a temporary venous pacemaker was advanced into the RV. Pacing threshholds were checked and deemed appropriate. Next the left femoral artery was accessed using a modified Seldinger technique, ultrasound guidance and micropuncture technique. A 6 Norwegian Rabi sheath was placed in the left femoral artery. Next, a 6-Norwegian pigtail catheter was advanced into the aorta and positioned in the aortic root, aortic root angiography was performed to determine optimal deployment angle. The right femoral artery was accessed using modified Seldinger technique, micropuncture technique and under direct ultrasound guidance. Femoral angiogram was done showing access in the common femoral artery and a 6Fr sheath was placed. Next preclose technique was performed using 2 Perclose. Next a 0.035 Safari wire was placed in the Aorta via a pigtail catheter. Over that the arteriotomy was serially dilated and a 18 Fr [place] sheath was placed. Next a 6F- AL1 catheter was advanced over a wire to the aortic root. A straight wire was advanced through the catheter and used to cross the severely stenotic valve. The AL1 was then exchanged for a 6Fr pigtail catheter and pressure measurements were obtained. The 0.035 [place]under[place] wire was then positioned in the apex. Next a 34 mm Evolut-FX was advanced. The valve was then positioned across the aortic valve and confirmed with aortic root angiography. The valve was then deployed in proper position using slow deployment and with rapid pacing in conjuncture with aortic root angiography and MACHO. The delivery system was withdrawn back into the arch and an aortic root injection in conjunction with MACHO demonstrated a satisfactory result. There was trivial para valvular leak. There was no evidence of any other significant abnormalities. The preclose Perclose was then deployed in the right femoral artery with addition of an 8Fr Angioseal and hemostasis was achieved. The pigtail was then advanced to the level of the iliac bifurcation via the left femoral access. Femoral angiogram was performed that showed no contrast leak. The left femoral angiogram demonstrated an arteriotomy in the common femoral artery and this was repaired using a 6F angioseal device with complete hemostasis. The temporary venous pacemaker was pulled and the venous sheath removed with pressure held and hemostasis achieved. The patient was then transported to the ICU in hemodynamically stable condition, requiring no pressor support. COMPLICATIONS: None CONCLUSION: 1. Implantaion of 34 mm Evolut-FX transcatheter aortic valve via right femoral approach under MACHO and fluoro guidance with trace cleo-valvular aortic regurgitation. 2. Placement of temporary pacemaker wire 3. Aortic Root Aortogram. RECOMMENDATIONS: The patient will be monitored for hemodynamic and electrical stability.
[2023-06-27 16:38] LABS: Glucose,Whole Blood 143 mg/dL (70-110)
[2023-06-27] MEDS: INSULIN ASPART (NovoLOG) 100 UNIT/ML VIAL SQ SCH ×2 (16:48→20:34)
[2023-06-27] MEDS ORDERED: WARFARIN 5 MG TAB PO SCH (18:00)
[2023-06-27 20:26] LABS: Glucose,Whole Blood 166 mg/dL (70-110)
[2023-06-27] MEDS ORDERED: ATORVASTATIN 20 MG TAB PO SCH (21:00)
[2023-06-27] MEDS ORDERED: SENNOSIDES-DOCUSATE SODIUM 1 EACH TAB PO SCH (21:00)
[2023-06-28 06:04] LABS: Glucose,Whole Blood 113 mg/dL (70-110)
[2023-06-28] MEDS: INSULIN ASPART (NovoLOG) 100 UNIT/ML VIAL SQ SCH ×2 (06:07→12:11)
[2023-06-28] MEDS ORDERED: PANTOPRAZOLE 40 MG TABLET PO SCH (07:30)
--- NOTE | 2023-06-28 07:47 | XR ---
EXAMINATION TYPE: XR chest 1V portable DATE OF EXAM: 06/28/2023 7:03 AM COMPARISON: Chest radiographs from 06/27/2023 TECHNIQUE: XR chest 1V portable Portable AP radiograph of the chest. CLINICAL INDICATION:Male, 88 years old with history of post tavr; FINDINGS: Lungs/Pleura: There is no evidence of pleural effusion, focal consolidation, or pneumothorax. Elevat ion the right hemidiaphragm redemonstrated. Pulmonary vascularity: Unremarkable. Heart/mediastinum: Cardiomediastinal silhouette is enlarged and stable. Postsurgical changes from TA VR. Single-lead cardiac conduction device overlying the left hemithorax with lead projecting over the right ventricle. Musculoskeletal: No acute osseous pathology. IMPRESSION: Postsurgical changes from TAVR. No focal consolidation.
[2023-06-28] MEDS: DAPAGLIFLOZIN PROPANEDIOL 5 MG TABLET PO SCH (08:35)
[2023-06-28] MEDS: lisinopriL 10 MG TAB PO SCH (08:36)
[2023-06-28 08:46] VITALS: RESP 17
[2023-06-28 08:47] LABS: INR 1.1 (<1.2); Prothrombin Time 12.2 sec (10.0-12.5)
[2023-06-28 08:49] LABS: Ionized Calcium 5.1 mg/dL (4.5-5.3)
[2023-06-28] MEDS ORDERED: METOPROLOL SUCCINATE (ER) 25 MG TAB.ER.24H PO SCH (09:00)
[2023-06-28] MEDS ORDERED: SPIRONOLACTONE 25 MG TAB PO SCH (09:00)
[2023-06-28] MEDS ORDERED: bisacodyL 10 MG SUPP RECTAL PRN (09:00)
[2023-06-28] MEDS ORDERED: FUROSEMIDE 20 MG TAB PO SCH (09:00)
[2023-06-28 09:16] LABS: Basophils % (A) 0 %; Eosinophils # (A) 0.1 k/uL (0-0.7); Eosinophils % (A) 1 %; HCT 40.7 % (39.0-53.0); HGB 13.8 gm/dL (13.0-17.5); Lymphocytes # (A) 1.8 k/uL (1.0-4.8); Lymphocytes % (A) 14 %; MCH 30.4 pg (25.0-35.0); MCHC 33.9 g/dL (31.0-37.0); MCV 89.6 fL (80.0-100.0); Mean Platelet Volume 7.5; Monocytes # (A) 0.7 k/uL (0-1.0); Monocytes % (A) 6 %; Neutrophils # (A) 9.8 k/uL (1.3-7.7); Neutrophils % (A) 78 %; Platelet Count 189 k/uL (150-450); RBC 4.55 m/uL (4.30-5.90); RDW 14.4 % (11.5-15.5); WBC 12.6 k/uL (3.8-10.6)
[2023-06-28 09:18] LABS: ALT 19 U/L (4-49); AST 30 U/L (17-59); African American GFR (CKD) 60 (>60 ml/min/1.73 sqM); Albumin 4.2 g/dL (3.5-5.0); Alkaline Phosphatase 64 U/L (38-126); Anion Gap 11 mmol/L; Blood Urea Nitrogen 26 mg/dL (9-20); Calcium 9.8 mg/dL (8.4-10.2); Carbon Dioxide 21 mmol/L (22-30); Chloride 105 mmol/L (98-107); Glucose 150 mg/dL (74-99); Magnesium 1.8 mg/dL (1.6-2.3); Non-African American GFR(CKD) 52 (>60 ml/min/1.73 sqM); Potassium 4.2 mmol/L (3.5-5.1); Sodium 137 mmol/L (137-145); Total Bilirubin 0.8 mg/dL (0.2-1.3); Total Protein 6.5 g/dL (6.3-8.2)
[2023-06-28] MEDS ORDERED: ENOXAPARIN 80 MG/0.8 ML SYRINGE SQ STA (10:11)
--- NOTE | 2023-06-28 11:09 | CA ---
Transthoracic Echo Report Name: Waldo Oshea Age: 88 Gender: M : 1935 Exam Date: 06/28/2023 09:29 Exam Location: [facility] Ht (in): 65 Wt (lb): 170 Ordering Physician: Heidy Ugarte Attending/Referring Phys: [id number], Torito Gel [employer]ater Bill Tripp Procedure CPT: Indications: post TAVR Cardiac Hx: Technical Quality: Fair Contrast 1: N/A Total Dose (mL): Contrast 2: Total Dose (mL): MEASUREMENTS (Male / Female) Normal Values 2D ECHO LVOT Diameter 2.3 cm Aortic Root Diameter 2.5 cm LA Systolic Diameter LX 3.6 cm 3.0 - 4.0 / 2.7 - 3.8 cm LV Diastolic Volume MOD BP 105.2 cm??? 67 - 155 / 56 - 104 cm??? LV Systolic Volume MOD BP 69.0 cm??? 22 - 58 / 19 - 49 cm??? LV Ejection Fraction MOD BP 34.4 % >= 55 % LV Cardiac Index MOD BP 1179.8 cm???/min???m??? LV Diastolic Volume MOD 4C 122.2 cm??? LV Systolic Volume MOD 4C 76.2 cm??? LV Ejection Fraction MOD 4C 37.6 % LV Cardiac Index MOD 4C 1500.2 cm???/min???m??? LV Diastolic Length 4C 9.0 cm LV Systolic Length 4C 7.6 cm LV Diastolic Volume MOD 2C 78.6 cm??? LV Systolic Volume MOD 2C 59.5 cm??? LV Ejection Fraction MOD 2C 24.3 % LV Cardiac Index MOD 2C 622.9 cm???/min???m??? LV Diastolic Length 2C 7.8 cm LV Systolic Length 2C 7.2 cm LA Volume 73.9 cm??? 18 - 58 / 22 - 52 cm??? LA Volume Index 38.9 cm???/m??? 16 - 28 cm???/m??? DOPPLER AV Peak Velocity 215.3 cm/s AV Peak Gradient 18.5 mmHg AV Mean Velocity 155.1 cm/s AV Mean Gradient 10.9 mmHg AV Velocity Time Integral 47.8 cm LVOT Peak Velocity 133.5 cm/s LVOT Peak Gradient 7.1 mmHg LVOT Velocity Time Integral 24.9 cm LVOT Stroke Volume 103.0 cm??? LVOT Stroke Volume Index 55.8 ml/m??? LVOT Cardiac Index 3358.1 cm???/min???m??? AV Area Cont Eq vti 2.2 cm??? AV Area Cont Eq pk 2.6 cm??? MV Peak Velocity 82.9 cm/s MV Peak Gradient 2.8 mmHg MV Mean Velocity 45.0 cm/s MV Mean Gradient 0.9 mmHg MV Velocity Time Integral 39.6 cm MR Peak Velocity 462.1 cm/s MR Peak Gradient 85.4 mmHg Mitral E Point Velocity 63.1 cm/s Mitral A Point Velocity 74.4 cm/s Mitral E to A Ratio 0.8 MV Deceleration Time 268.1 ms MV E' Velocity 5.8 cm/s Mitral E to MV E' Ratio 10.9 TR Peak Velocity 281.4 cm/s TR Peak Gradient 31.7 mmHg Right Ventricular Systolic Press 36.7 mmHg PV Peak Velocity 168.1 cm/s PV Peak Gradient 11.3 mmHg FINDINGS Left Ventricle Mildly increased left ventricular systolic volume. Moderately decreased left ventricular ejection fraction. Normal LV size. Left ventricular ejection fraction is estimated at 35-40 %. Inferior wall hypokinesia Right Ventricle Normal right ventricular size. RVSP estimated at 40 mmHg Right Atrium Catheter/pacemaker wire in the right atrial cavity. Left Atrium Moderate left atrial dilatation Mitral Valve Structurally normal mitral valve. Mild MR. Aortic Valve Post TAVR. No aortic valve stenosis or regurgitation. Tricuspid Valve Structurally normal tricuspid valve. Mild TR. Pulmonic Valve Pulmonic valve not well visualized. Mild PI. Pericardium Normal pericardium. Aorta Normal size aortic root. CONCLUSIONS Left ventricular ejection fraction is estimated at 35-40 %. Inferior wall hypokinesia. Moderate left atrial dilatation. PPM wire noticed in RA and RV RVSP estimated at 40 mmHg Mild MR No pericardial effusion Previewed by: Dr Martir Michael (Electronically Signed) Final Date: 28 June 2023 11:08
[2023-06-28 11:50] LABS: Glucose,Whole Blood 119 mg/dL (70-110)
[2023-06-28 12:12] VITALS: BP 135/77; PULSE 65; TEMP 97.9
--- NOTE | 2023-06-28 15:13 | P.DS ---
Providers Date of admission: 06/27/23 05:34 Expected date of discharge: 06/28/23 Attending physician: Louis Salgado DO Consults: 06/25/23 14:49 Consult to Anesthesia Routine Consulting Provider: Anesthesia,Services Consult Reason/Comments: Cardiac Surgery Pre-Op 06/27/23 08:39 Consult Physician Routine Consulting Provider: Catarino De Leon Consult Reason/Comments: post TAVR Do you want consulting provider notified?: Already Contacted Primary care physician: Catarino Irwin [facility] Course: MEDICAL HISTORY: 1. Calcified aortic valve with severe symptomatic aortic valve stenosis, NYHA class II 2. Hypertension 3. Hyperlipidemia 4. Paroxysmal atrial fibrillation, on Coumadin for anticoagulation 5. Nonischemic cardiomyopathy, status post ICD 6. Chronic kidney disease 7. Lifetime nonsmoker PROCEDURE: 1. Percutaneous aortic valve implantation using a 34 mm Evolute-FX under MACHO and fluoroscopy guidance 2. Transesophageal echocardiography performed by anesthesia 3. Ultrasound-guided access and repair of right femoral artery access site by Perclose closure device 4. Placement of temporary pacemaker wire 5. Aortic root angiography HISTORY OF PRESENT ILLNESS: This is an 88-year-old gentleman who follows on an outpatient basis with Dr. Irwin for primary care and Dr. Roberts for cardiology. He has a known history of severe aortic stenosis and has been symptomatic with increased exertional dyspnea as well as fatigue, lower extremity edema, and occasional chest pressure. He had been referred to structural heart clinic for evaluation for transcatheter aortic valve replacement after heart catheterization and transesophageal echocardiogram were completed. Echocardiography demonstrated systolic function with EF 35-40%, aortic valve area 0.72 cm with a peak/mean gradient 81/51 mmHg. Heart catheterization showed mild nonobstructive coronary artery disease. After workup was completed STS risk score was calculated along with incremental risk and the patient was felt to be high risk for surgical aortic valve replacement, therefore transcatheter aortic valve replacement was recommended. The usual course of TAVR was discussed in detail the patient, risks and benefits were reviewed, shared decision making between cardiology, surgery, and the patient/family took place, and the patient consented to proceed with the procedure. HOSPITAL COURSE: The patient was brought to the hospital on 06/27/2023, was taken to the extended stay area, prepared in the usual fashion, and subsequently taken to the cardiac catheterization laboratory where Dr. Salgado and Dr. De Leon completed TAVR procedure under general anesthesia with fluoroscopy and MACHO. The valve was deployed under rapid ventricular pacing and proceeded without event. At the end of the procedure there was no significant gradient, hemodynamics were felt to be acceptable, and there was no evidence of significant perivalvular leak. Upon completion of the procedure the patient was extubated and was transferred to the cardiovascular intensive care unit where he was recovered and monitored hemodynamically. His oxygen was titrated down, he was tolerating oral diet, his pain was controlled, follow-up TTE demonstrated no aortic valve stenosis or regurgitation, and he was ready to be discharged to home on postoperative day #1. He received written and verbal instruction regarding his medications, activity restrictions, signs and symptoms requiring physician notification, and follow-up appointments. Patient Condition at Discharge: Stable Plan - Discharge Summary Discharge Rx Participant: Yes New Discharge Prescriptions: New Sennosides-Docusate Sodium [Senokot-S] 2 each PO HS PRN tab PRN Reason: Constipation Acetaminophen Tab [Tylenol] 650 mg PO Q4HR PRN tab PRN Reason: Fever And/ Or Mild Pain (1-3) Continue Furosemide 20 mg PO QAM lisinopriL [Lisinopril] 10 mg PO QAM Omeprazole 20 mg PO QAM Warfarin Sodium 5 mg PO DAILY Spironolactone [Aldactone] 25 mg PO QAM Metoprolol Succinate [Toprol XL] 25 mg PO QAM Empagliflozin [Jardiance] 10 mg PO QAM Rosuvastatin [Crestor] 10 mg PO HS Albuterol Inhaler [Ventolin Hfa Inhaler] 1 - 2 puff INHALATION Q6H PRN PRN Reason: Shortness Of Breath Discharge Medication List Furosemide 20 mg PO QAM 02/18/15 [History] Omeprazole 20 mg PO QAM 02/18/15 [History] Warfarin Sodium 5 mg PO DAILY 02/18/15 [History] lisinopriL [Lisinopril] 10 mg PO QAM 02/18/15 [History] Metoprolol Succinate [Toprol XL] 25 mg PO QAM 11/22/15 [History] Spironolactone [Aldactone] 25 mg PO QAM 11/22/15 [History] Empagliflozin [Jardiance] 10 mg PO QAM 05/24/23 [History] Albuterol Inhaler [Ventolin Hfa Inhaler] 1 - 2 puff INHALATION Q6H PRN 06/20/23 [History] Rosuvastatin [Crestor] 10 mg PO HS 06/20/23 [History] Acetaminophen Tab [Tylenol] 650 mg PO Q4HR PRN tab 06/28/23 [Rx] Sennosides-Docusate Sodium [Senokot-S] 2 each PO HS PRN tab 06/28/23 [Rx] Follow up Appointment(s)/Referral(s): Leigh Roberts MD [STAFF PHYSICIAN] - 09/14/23 8:30 am (Your appointment 09/14/23 is for 30 post TAVR echo and appointment with Dr. Roberts. You also have a 1 year post TAVR echo and appointment with Dr. Roberts 06/17/24 @ 1:45 pm) Anna Mahoney NPC [Nurse Practitioner] - 07/09/23 10:00 am Catarino Irwin MD [Primary Care Provider] - As Needed Clinic,Structural Heart [NON-STAFF] - 09/14/23 10:00 am (Your appointment 09/14/23 is for 30 post TAVR appointment at the valve clinic after your appointment with Dr. Roberts. You also have a 1 year post TAVR appointment at the valve clinic 06/17/24 @ 1:00 pm before your appointment with Dr. Roberts) Ambulatory/Diagnostic Orders: Basic Metabolic Panel [LAB.AMB] Location: None Selected Basic Metabolic Panel [LAB.AMB] Location: None Selected Complete Blood Count w/diff [LAB.AMB] Location: None Selected Complete Blood Count w/diff [LAB.AMB] Location: None Selected Patient Instructions/Handouts: Transcatheter Aortic Valve Replacement (DC) Activity/Diet/Wound Care/Special Instructions: DISCHARGE INSTRUCTIONS: 1. No driving for 1 week, or until physician gives their ok. 2. No lifting, pushing, or pulling more than 5-10 pounds for 1 week. 3. Hold both groins when you cough or sneeze for the next 2 weeks. Bruising is common, but report increased swelling, pain or fever >101F 4. Shower daily. No pool, hot tub, or bathtub for 1 week 5. No powders, lotions, ointments on incisions. 6. No straining, including for bowel movements. Use stool softner if necessary 7. Stairs are not an issue. Go slowly, using handrail and take 1 step at a time. Ambulate several times daily 8. Continue pain control per as needed orders. 9. Take only the medications listed on your discharge form 10. Eat low salt (limited to 2 grams or 2000 milligrams) daily, avoid adding salt, avoid canned/processed foods 11. Take your weight daily in the morning and record, bring with you to your follow up appointments 12. Keep all follow up appointments. You will need a valve clinic appointment at 30 days and 1 year post procedure for follow up 13. You have been referred to and are expected to begin Cardiac Rehab in approximately 4 weeks. 14. You will need antibiotics prior to any dental work, including cleanings, and any surgeries to prevent Endocarditis (bacterial infection in your heart) For any questions or concerns please call your valve coordinators: Heidy or Ritchie @ Discharge Disposition: HOME SELF-CARE
== END 2023-06-28 13:26 | disposition home or self-care (01) | DRG 267 ==
LOC: 2ORMAIN 05:34 → 3SCARD 11:23
PROVIDERS: ADMIT Internal Medicine; ATTEND Internal Medicine
PROC: 02RF38N Replacement of Aortic Valve with Zooplastic Tissue, using Rapid Deployment Technique, Percutaneous Approach (ICD-10-PCS; principal; 2023-06-27 08:00)
PROC: 04QK0ZZ Repair Right Femoral Artery, Open Approach (ICD-10-PCS; principal; 2023-06-27 08:00)
PROC: B3101ZZ Fluoroscopy of Thoracic Aorta using Low Osmolar Contrast (ICD-10-PCS; principal; 2023-06-27 08:00)
PROC: B24BZZ4 Ultrasonography of Heart with Aorta, Transesophageal (ICD-10-PCS; principal; 2023-06-27 08:00)
DX: I35.2 Nonrheumatic aortic (valve) stenosis with insufficiency (principal); Z00.6 Encounter for examination for normal comparison and control in clinical research program; I13.0 Hypertensive heart and chronic kidney disease with heart failure and stage 1 through stage 4 chronic kidney disease, or unspecified chronic kidney disease; I48.19 Other persistent atrial fibrillation; I50.22 Chronic systolic (congestive) heart failure; I42.8 Other cardiomyopathies; E78.5 Hyperlipidemia, unspecified; R00.1 Bradycardia, unspecified; I25.10 Atherosclerotic heart disease of native coronary artery without angina pectoris; N18.9 Chronic kidney disease, unspecified; Z95.810 Presence of automatic (implantable) cardiac defibrillator; Z79.01 Long term (current) use of anticoagulants; Z79.899 Other long term (current) drug therapy; Z88.2 Allergy status to sulfonamides
CPT/HCPCS: 33361; 71045; 80048; 80053; 82330; 83735; 85025; 85610; 86850; 86900; 86901; 93306; 93312; 93320; 93325